=== PATIENT | female | born 1990 | race Caucasian/White ===

== ENCOUNTER 2018-12-20 20:38 | Observation (INO) ==
[2018-12-20 21:15] LABS: Bilirubin,Urine Negative (Negative); Blood,Urine Negative (Negative); Clarity,Urine Cloudy (Clear); Color,Urine Yellow (Yellow); Glucose,Urine (UA) Normal (Normal); Ketones,Urine 15 mg/dL (Negative); Leukocyte Esterase,Urine Moderate (Negative); Nitrite,Urine Negative (Negative); Protein,Urine Negative (Neg-Trace); Specific Gravity,Urine 1.018 (1.010-1.025); Urobilinogen,Urine Normal (Normal)
[2018-12-20 21:18] LABS: Bacteria,Urine Many per hpf (None-Few); Hyaline Casts,Urine None Seen per lpf (None-Few); Squamous Epithelial Cell,Urine Many per lpf (None-Few); WBC,Urine 50-100 per hpf (0-3)
[2018-12-20 21:23] LABS: Amphetamine Screen,Urine Negative ng/mL (Cutoff=1000); Barbiturate Screen,Urine Negative ng/mL (Cutoff=200); Benzodiazepines Screen,Urine Negative ng/mL (Cutoff=200); Cannabinoid Screen,Urine Negative ng/mL (Cutoff = 50); Cocaine Screen,Urine Negative ng/mL (Cutoff= 300); Opiate Screen,Urine Negative ng/mL (Cutoff=300); Phencyclidine Screen,Urine Negative ng/mL (Cutoff=25)
[2018-12-20 21:30] LABS: RBC,Urine 0-3 per hpf (0-3); Trichomonas,Urine Present (None Seen)
[2018-12-21] MEDS ORDERED: Terconazole Vag CRM 20 GM TUBE VG SCH (21:39)
== END 2018-12-20 22:13 | disposition home or self-care (01) ==
LOC: 1NENULAB
PROVIDERS: ADMIT Advanced Practice Midwife; ATTEND Advanced Practice Midwife

== ENCOUNTER → 2019-02-08 13:42 | Observation (INO) ==
[2019-02-08 12:02] LABS: Bilirubin,Urine Negative (Negative); Blood,Urine Negative (Negative); Clarity,Urine Cloudy (Clear); Color,Urine Yellow (Yellow); Glucose,Urine (UA) Normal (Normal); Ketones,Urine Negative (Negative); Leukocyte Esterase,Urine Small (Negative); Nitrite,Urine Negative (Negative); Protein,Urine Negative (Neg-Trace); Specific Gravity,Urine 1.012 (1.010-1.025); Urobilinogen,Urine Normal (Normal)
[2019-02-08 12:05] LABS: Bacteria,Urine Moderate per hpf (None-Few); Hyaline Casts,Urine None Seen per lpf (None-Few); Squamous Epithelial Cell,Urine Many per lpf (None-Few); WBC,Urine 15-30 per hpf (0-3)
[2019-02-08 12:11] LABS: Amphetamine Screen,Urine Negative ng/mL (Cutoff=1000); Barbiturate Screen,Urine Negative ng/mL (Cutoff=200); Benzodiazepines Screen,Urine Negative ng/mL (Cutoff=200); Cannabinoid Screen,Urine Negative ng/mL (Cutoff = 50); Cocaine Screen,Urine Negative ng/mL (Cutoff= 300); Opiate Screen,Urine Negative ng/mL (Cutoff=300); Phencyclidine Screen,Urine Negative ng/mL (Cutoff=25)
--- NOTE | 2019-02-08 13:38 | OB/GYN Progress Note ---
Date of Encounter: 02/08/19 Time of Encounter: 13:36 - Assessment and Plan (1) 35 weeks gestation of Current Visit: Yes Status: Acute (2) Uterine contractions Current Visit: Yes Status: Acute Fingertip on admission, no change on serial cervical exams. Discharged home with labor and when to return to triage precautions. Patient verbalizes understanding and in agreement with plan. Patient given late duty for remainder of . Discharged discussed with Dr. Ness Subjective - Subjective Interval history: 35+3 weeks gestation presents to triage with complaints of contractions. Patient was evaluated [facility] last night, given terbutaline to stop contractions. Fingertip at that time. Patient states resumed contractions this morning. Reports good movement, denies vaginal bleeding or leaking of fluid. Antepartum ROS: movement normal, contractions, no loss of fluid, no vaginal bleeding Objective - Exam FHR: auscultation normal FHR comments: 145/moderate/+accels/-decels Abdomen: Present: soft, gravid Cervical dilation: fingertip/thick/high - Labs Labs: Abnormal lab results Urine Clarity Cloudy (Clear) A 02/08/19 11:25 Ur Leukocyte Esterase Small (Negative) H 02/08/19 11:25 Urine Microscopic RBC 3-5 per hpf (0-3) H 02/08/19 11:25 Urine Microscopic WBC 15-30 per hpf (0-3) H 02/08/19 11:25 Ur Squamous Epith Cells Many per lpf (None-Few) H 02/08/19 11:25 Urine Bacteria Moderate per hpf (None-Few) H 02/08/19 11:25 Ur Culture Indicated? YES (NO) A 02/08/19 11:25
== END | disposition home or self-care (01) ==
LOC: 1NENULAB
PROVIDERS: ADMIT Advanced Practice Midwife; ATTEND Advanced Practice Midwife

== ENCOUNTER → 2019-02-15 01:20 | Observation (INO) ==
[2019-02-14 23:57] LABS: Amphetamine Screen,Urine Negative ng/mL (Cutoff=1000); Barbiturate Screen,Urine Negative ng/mL (Cutoff=200); Benzodiazepines Screen,Urine Negative ng/mL (Cutoff=200); Cannabinoid Screen,Urine Negative ng/mL (Cutoff = 50); Cocaine Screen,Urine Negative ng/mL (Cutoff= 300); Opiate Screen,Urine Negative ng/mL (Cutoff=300); Phencyclidine Screen,Urine Negative ng/mL (Cutoff=25)
[2019-02-15 00:15] LABS: Bilirubin,Urine Negative (Negative); Blood,Urine Negative (Negative); Clarity,Urine Cloudy (Clear); Color,Urine Yellow (Yellow); Glucose,Urine (UA) Normal (Normal); Ketones,Urine Negative (Negative); Leukocyte Esterase,Urine Small (Negative); Nitrite,Urine Negative (Negative); Protein,Urine Negative (Neg-Trace); Urobilinogen,Urine Normal (Normal)
[2019-02-15 00:17] LABS: Bacteria,Urine Few per hpf (None-Few); Hyaline Casts,Urine None Seen per lpf (None-Few); Squamous Epithelial Cell,Urine Many per lpf (None-Few); WBC,Urine 30-50 per hpf (0-3)
[2019-02-15 00:23] LABS: RBC,Urine 0-3 per hpf (0-3)
[2019-02-15 00:28] LABS: Trichomonas,Urine Present (None Seen)
[~2019-02-15 01:20] MED LIST: Acetaminophen 325 MG TABLET PO ONE; metroNIDAZOLE 500 MG TABLET PO ONE
== END | disposition home or self-care (01) ==
LOC: 1NENULAB
PROVIDERS: ADMIT Advanced Practice Midwife; ATTEND Advanced Practice Midwife

== ENCOUNTER 2019-02-24 11:05 | Inpatient (IN) ==
[2019-02-24] MEDS ORDERED: *HR* Nalbuphine 10 MG/ML AMPUL IVP PRN (11:16)
[2019-02-24] MEDS ORDERED: Famotidine 20 MG/2 ML VIAL IVP PRN (11:16)
[2019-02-24] MEDS ORDERED: Metoclopramide 10 MG/2 ML VIAL IVP PRN ×2 (11:16→15:10)
[2019-02-24] MEDS ORDERED: Lidocaine 1% 20 ML MDV INFILT PRN (11:16)
[2019-02-24] MEDS ORDERED: Ondansetron 4 MG/2 ML VIAL IVP PRN ×2 (11:16→15:10)
[2019-02-24] MEDS ORDERED: Naloxone 0.4 MG/ML INJ IVP PRN (11:16)
[2019-02-24] MEDS ORDERED: Ringers Solution, Lactated 1,000 ML ONE ×2 (11:19→12:00)
[2019-02-24] MEDS ORDERED: Ringers Solution, Lactated 1,000 ML IVC SCH ×2 (11:30→15:10)
[2019-02-24] MEDS ORDERED: ceFAZolin 2,000 MG in Water for inj. (sterile) 20 ML IVP ONE (11:42)
[2019-02-24] MEDS ORDERED: *HR* HYDROmorphone 2 MG TABLET PO PRN (11:51)
[2019-02-24] MEDS ORDERED: *HR* Promethazine 25 MG/ML VIAL IVP PRN (11:51)
[2019-02-24] MEDS ORDERED: Acetaminophen IV 1,000 MG/100 ML INFUS..BTL IVPB STA (11:51)
[2019-02-24] MEDS ORDERED: *HR* OxyCODONE Immed Rel 5 MG TABLET PO PRN (11:51)
[2019-02-24] MEDS ORDERED: *HR* HYDROmorphone (PF) 1 MG/ML SYRINGE IVP PRN (11:51)
[2019-02-24 11:57] LABS: Basophils % 0.2 %; Eosinophils # 0.2 K/mcL (0.0-0.6); Eosinophils % 1.9 %; Hematocrit 35.4 % (35.3-44.9); Hemoglobin 11.8 g/dL (11.5-15.4); Immature Granulocytes % 0.4 % (0-4); Lymphocytes % 19.9 %; Mean Corpuscular HGB Conc 33.3 g/dL (31.6-35.5); Mean Corpuscular Hemoglobin 29.8 pg (28.0-33.3); Mean Corpuscular Volume 89.4 fL (83.0-100.0); Mean Platelet Volume 11.3 fL (9.4-12.4); Monocytes # 0.7 K/mcL (0.0-1.3); Monocytes % 6.8 %; Platelet Count 206 K/mcL (140-400); Red Blood Count 3.96 M/mcL (3.82-4.97); Red Cell Distribution Width 14.2 % (11.5-14.5); Segmented Neutrophils % 70.8 %; White Blood Count 9.9 K/mcL (4.3-11.1)
[2019-02-24] MEDS ORDERED: *HR* Oxytocin 10 UNIT/ML VIAL IM ONE ×2 (12:00)
[2019-02-24] MEDS ORDERED: Ondansetron 4 MG/2 ML VIAL ONE (12:00)
[2019-02-24] MEDS ORDERED: *HR* FentaNYL (PF) 100 MCG/2 ML VIAL ONE (12:00)
[2019-02-24] MEDS ORDERED: EPHEDrine 50 MG/ML VIAL ONE (12:00)
[2019-02-24] MEDS ORDERED: *HR* Succinylcholine 200 MG/10 ML VIAL IVP ONE (12:01)
[2019-02-24] MEDS ORDERED: *HR* Propofol 200 MG/20 ML VIAL IVP ONE (12:01)
[2019-02-24] MEDS ORDERED: CeFAZolin Premix DUPLEX 2,000 MG/50 ML BAG IVPB ONE (13:00)
[2019-02-24] MEDS ORDERED: *HR* HYDROmorphone 20 MG/20 ML PCA IVC PRN (15:10)
[2019-02-24] MEDS ORDERED: metroNIDAZOLE 250 MG TABLET PO ONE (15:10)
[2019-02-24] MEDS ORDERED: Sennosides 8.6 MG TABLET PO PRN (15:10)
[2019-02-24] MEDS ORDERED: Oxytocin 20 units/ LR 1000 mL 20 UNIT/1,000 ML BAG IVC SCH (15:10)
[2019-02-24] MEDS ORDERED: Simethicone 80 MG TAB.CHEW PO PRN (15:10)
[2019-02-24] MEDS ORDERED: Measles/Mumps/Rubella Vacc 0.5 ML VIAL SQ ONE (15:10)
[2019-02-24] MEDS: *HR* OxyCODONE/APAP 5/325 TABLET PO PRN (17:49)
[2019-02-24] MEDS: metroNIDAZOLE 500 MG TABLET PO SCH (18:07)
[2019-02-24] MEDS: *HR* OxyCODONE/APAP 10/325 TABLET PO PRN (20:17)
[2019-02-25] MEDS: Ibuprofen 600 MG TABLET PO PRN ×4 (00:57→21:12)
[2019-02-25] MEDS: *HR* OxyCODONE/APAP 10/325 TABLET PO PRN ×3 (04:42→20:12)
[2019-02-25] MEDS: metroNIDAZOLE 500 MG TABLET PO SCH ×2 (09:38→21:10)
[2019-02-25] MEDS: Folic Acid 1 MG TABLET PO SCH (09:38)
[2019-02-25] MEDS: Aspirin 325 MG TABLET PO SCH (09:38)
[2019-02-25] MEDS: Prenatal Vit/FA 1 EACH TABLET PO SCH (09:38)
[2019-02-25 10:14] LABS: Basophils % 0.1 %; Eosinophils # 0.1 K/mcL (0.0-0.6); Eosinophils % 1.3 %; Hematocrit 28.9 % (35.3-44.9); Immature Granulocytes % 0.5 % (0-4); Lymphocytes # 1.7 K/mcL (0.6-4.6); Lymphocytes % 16.7 %; Mean Corpuscular HGB Conc 33.9 g/dL (31.6-35.5); Mean Corpuscular Hemoglobin 30.2 pg (28.0-33.3); Mean Corpuscular Volume 89.2 fL (83.0-100.0); Mean Platelet Volume 11.1 fL (9.4-12.4); Monocytes # 0.7 K/mcL (0.0-1.3); Monocytes % 6.6 %; Neutrophils # 7.7 K/mcL (1.6-8.9); Platelet Count 188 K/mcL (140-400); Red Blood Count 3.24 M/mcL (3.82-4.97); Red Cell Distribution Width 14.2 % (11.5-14.5); Segmented Neutrophils % 74.8 %; White Blood Count 10.2 K/mcL (4.3-11.1)
[2019-02-25 10:20] LABS: Hemoglobin 9.8 g/dL (11.5-15.4)
[2019-02-25] MEDS: cephALEXin 500 MG CAPSULE PO SCH (12:29)
[2019-02-25 22:51] VITALS: BP 114/70
[2019-02-26] MEDS: cephALEXin 500 MG CAPSULE PO SCH ×2 (00:40→09:36)
[2019-02-26] MEDS: *HR* OxyCODONE/APAP 10/325 TABLET PO PRN (03:56)
[2019-02-26] MEDS: Ibuprofen 600 MG TABLET PO PRN ×2 (04:34→12:22)
[2019-02-26] MEDS: *HR* OxyCODONE/APAP 5/325 TABLET PO PRN (09:37)
[2019-02-26] MEDS: Folic Acid 1 MG TABLET PO SCH (09:37)
[2019-02-26] MEDS: Prenatal Vit/FA 1 EACH TABLET PO SCH (09:37)
[2019-02-26] MEDS: metroNIDAZOLE 500 MG TABLET PO SCH (09:37)
[2019-02-26] MEDS: Aspirin 325 MG TABLET PO SCH (09:38)
[2019-02-26] MEDS ORDERED: Lanolin 7 G OINT...G. TP PRN (10:08)
== END 2019-02-26 19:07 | disposition home or self-care (01) | DRG 540 ==
LOC: 1NENULAB → OBSVTOIN 11:05 → 1NENUOBS 13:55
PROVIDERS: ADMIT Advanced Practice Midwife; ATTEND Advanced Practice Midwife